=== PATIENT | female | born 1985 | race Caucasian/White ===

== ENCOUNTER 2016-07-30 16:00 | Inpatient (IN) ==
[2016-07-30] MEDS ORDERED: LIDOCAINE 1% 20 ML VIAL SQ ONE (16:01)
[2016-07-30] MEDS ORDERED: 0.9 % SODIUM CHLORIDE 1,000 ML IV ONE ×3 (16:16→20:16)
[2016-07-30] MEDS ORDERED: LORazepam 2 MG/ML VIAL IV ONE (16:30)
--- NOTE | 2016-07-30 16:39 | XRay Report ---
CLINICAL INFORMATION: Tachycardia. Chest pain. Dyspnea. TECHNIQUE: AP semierect portable chest x-ray COMPARISON: None. FINDINGS: Lungs are negative. No pulmonary parenchymal infiltrate. No parenchymal mass. Heart size and vascularity are normal. No pulmonary edema. No pulmonary congestion. No pleural fluid. IMPRESSION: Negative AP chest x-ray Interpreted and Authenticated by: Kian Gray 07/30/16
--- NOTE | 2016-07-30 16:44 | Emergency Department Note ---
General Adult HPI - General Chief complaint: Arrhythmia/Palpitations Stated complaint: Chills, joint pain, restless Time Seen by Provider: 07/30/16 16:08 Source: patient Mode of arrival: ambulatory Limitations: no limitations - History of Present Illness HPI Narrative: This patient started Seroquel one month ago and had an increase in her dose last week. She is currently taking 100 mg in the morning and 300 mg at night. Her provider saw her today and was most concerned about serotonin syndrome and so sent her to the ER. The patient does have clinical symptoms of serotonin syndrome with tachycardia fever slight restlessness and anxiousness. Mild muscle aches. Her heart rate was 140 and her temperature 101. - Related Data Home Medications Medication Instructions Recorded Confirmed QUEtiapine [SEROquel] 0 mg PO BID 07/30/16 07/30/16 diphenhydrAMINE HCL [Benadryl] 50 mg PO HSP PRN 07/30/16 07/30/16 Allergies Allergy/AdvReac Type Severity Reaction Status Date / Time No Known Drug Allergies Allergy Unverified 07/30/16 16:13 Review of Systems Constitutional: Reports: fever, chills Eyes: Denies: eye pain ENT ED: Denies: ear pain, throat pain Cardiovascular: Reports: chest pain, palpitations Respiratory: Reports: cough Gastrointestinal: Denies: abdominal pain, nausea, vomiting Genitourinary: Denies: urgency Musculoskeletal: Reports: back pain Integumentary: Denies: rash Neurological: Reports: headache Psychiatric: Reports: anxiety Past Medical History - Past Medical History Surgical history ED: Reports: cholecystectomy, hysterectomy, orthopedic, other ( carpal tunnel) Psychiatric history: Reports: bipolar Physical Exam - General Limitations: no limitations General appearance: alert, in no apparent distress - Head Head exam: atraumatic - Eye Eye exam: Present: normal appearance, PERRL, EOMI - ENT ENT exam: normal exam - Neck Neck exam: Present: normal inspection - Chest Chest inspection: Present: normal inspection - Respiratory Respiratory exam: Present: normal lung sounds bilaterally - Cardiovascular Cardiovascular exam: Present: regular rate, normal rhythm, tachycardia, normal heart sounds - Abdominal Exam Abdominal exam: Present: soft. Absent: distention, tenderness - Neurological Exam Neurological exam: Present: alert - Psychiatric Psychiatric exam: Present: normal affect, normal mood - Skin Skin exam: Present: warm, dry, intact Course Vital Signs Temperature 100.1 F H 05/16/17 16:05 Pulse Rate 144 H 07/30/16 16:05 Respiratory Rate 18 07/30/16 16:05 Blood Pressure 145/97 07/30/16 16:05 Pulse Oximetry (%) 99 07/30/16 16:05 Temperature 100.5 F H 07/31/16 05:10 Pulse Rate 114 H 07/31/16 03:39 Respiratory Rate 20 07/31/16 05:10 Blood Pressure 138/79 07/31/16 05:10 Pulse Oximetry (%) 96 07/31/16 07:13 Medical Decision Making - MDM Narrative Medical decision making narrative: As it turns Seroquel was not an SSRI and does not cause serotonin syndrome. Most likely this patient does have an infection of unknown source at this time. She does relate that she got scratched by a new rabbit last week and symptoms seemed to start after that. At this point we'll do CT of chest abdomen pelvis and a lumbar puncture and she'll be started on Rocephin and Levaquin and vancomycin and admitted to the hospital here. - Lab Data Lab results reviewed: Yes I reviewed the patient's lab results. Result diagrams: 07/31/16 03:55 07/31/16 03:55 Lab Results 07/30/16 07/30/16 07/30/16 Range/Units 16:20 16:20 16:20 WBC Cancelled RBC Cancelled Hgb Cancelled Hct Cancelled MCV Cancelled MCH Cancelled MCHC Cancelled RDW Cancelled Plt Count Cancelled MPV Cancelled Gran % Cancelled Lymph % (Auto) Cancelled [place] % (Auto) Cancelled Eos % (Auto) Cancelled Baso % (Auto) Cancelled Gran # Cancelled Lymph # Cancelled [place] # Cancelled Eos # Cancelled Baso # Cancelled Total Counted Seg Neutrophils % (38-78) % Band Neutrophils % (0-10) % Lymphocytes % (15-49) % Monocytes % (Manual) (1-12) % Differential Comment Cancelled Platelet Estimate (NORMAL) RBC Morphology (NORMAL) D-Dimer 0.91 H (0.00-0.40) ug/ml VBG Lactic Acid (0.5-2.2) mmol/L Sodium 136 (133-145) mmol/L Potassium 4.3 (3.3-5.1) mmol/L Chloride 97 (96-108) mmol/L Carbon Dioxide 23 (22-30) mmol/L Anion Gap 16.0 (8-16) BUN 10 (6-20) mg/dl Creatinine 0.8 (0.6-1.1) mg/dl GFR Calculation 98 Glucose 204 H (70-105) mg/dL Calcium 8.9 (8.6-10.4) mg/dl Total Bilirubin 0.2 (0.0-1.0) mg/dL AST 15 (0-37) U/l ALT 24 (0-40) U/l Alkaline Phosphatase 126 H (39-117) U/L Total Creatine Kinase (24-170) IU/L Troponin T (0-0.03) ng/ml Total Protein 7.3 (5.9-8.4) gm/dL Albumin 4.0 (3.2-5.2) gm/dL Globulin 3.3 (2.2-3.7) gm/dL Albumin/Globulin Ratio 1.2 (1.0-2.3) Urine Color Urine Appearance Urine pH (5.0-9.0) Ur Specific [place] (1.000-1.035) Urine Protein (NEG) mg/dL Urine Glucose (UA) (NEG) mg/dL Urine Ketones (NEG) mg/dL Urine Occult Blood (<0.03) mg/dL Urine Nitrate (NEG) Urine Bilirubin (NEG) mg/dL Urine Urobilinogen (NEG) mg/dL Ur Leukocyte Esterase (NEG) /uL Urine RBC (0-1) /hpf Urine WBC (0-4) /hpf Ur Squamous Epith Cells (0-4) /hpf Urine Bacteria (0) /hpf Urine Mucus (0) /hpf Ur Culture Indicated? CSF Source CSF Appearance CSF Color CSF RBC (0-1) /cumm CSF Diff Total Count CSF Total Nucleated Auto (0-5) /cumm CSF Neutrophils (0-6) % CSF Lymphocytes (40-80) % CSF Reactive Lymphs CSF Monocytes (15-45) % CSF Eosinophils % CSF Basophils CSF Macrophages CSF Plasma Cells CSF Diff Comment CSF Glucose (45-75) mg/dL CSF Total Protein (15.0-45) mg/dL Urine Opiates Screen (NONDETECTED) Ur Opiates Confirm Urine Methadone Screen (NONDETECTED) Ur Methadone Confirm Ur Barbiturates Screen (NONDETECTED) Ur Barbiturate Confirm Ur Phencyclidine Scrn (NONDETECTED) Urine PCP Confirm Ur Amphetamines Screen (NONDETECTED) U Amphetamines Confirm U Benzodiazepines Scrn (NONDETECTED) U Benzodiazepine Confm Urine Cocaine Screen (NONDETECTED) Urine Cocaine Confirm U Cannabinoids Confirm U Marijuana (THC) Screen (NONDETECTED) 07/30/16 07/30/16 07/30/16 Range/Units 16:20 16:20 16:20 WBC 6.7 RBC 4.95 Hgb 13.5 Hct 40.3 MCV 81.4 MCH 27.2 MCHC 33.4 RDW 14.6 H Plt Count 226 MPV 9.3 Gran % Lymph % (Auto) [place] % (Auto) Eos % (Auto) Baso % (Auto) Gran # Lymph # [place] # Eos # Baso # Total Counted 100 Seg Neutrophils % 64 (38-78) % Band Neutrophils % 15 H (0-10) % Lymphocytes % 15 (15-49) % Monocytes % (Manual) 6 (1-12) % Differential Comment Platelet Estimate Normal (NORMAL) RBC Morphology Normal (NORMAL) D-Dimer (0.00-0.40) ug/ml VBG Lactic Acid (0.5-2.2) mmol/L Sodium (133-145) mmol/L Potassium (3.3-5.1) mmol/L Chloride (96-108) mmol/L Carbon Dioxide (22-30) mmol/L Anion Gap (8-16) BUN (6-20) mg/dl Creatinine (0.6-1.1) mg/dl GFR Calculation Glucose (70-105) mg/dL Calcium (8.6-10.4) mg/dl Total Bilirubin (0.0-1.0) mg/dL AST (0-37) U/l ALT (0-40) U/l Alkaline Phosphatase (39-117) U/L Total Creatine Kinase 117 (24-170) IU/L Troponin T < 0.01 (0-0.03) ng/ml Total Protein (5.9-8.4) gm/dL Albumin (3.2-5.2) gm/dL Globulin (2.2-3.7) gm/dL Albumin/Globulin Ratio (1.0-2.3) Urine Color Urine Appearance Urine pH (5.0-9.0) Ur Specific [place] (1.000-1.035) Urine Protein (NEG) mg/dL Urine Glucose (UA) (NEG) mg/dL Urine Ketones (NEG) mg/dL Urine Occult Blood (<0.03) mg/dL Urine Nitrate (NEG) Urine Bilirubin (NEG) mg/dL Urine Urobilinogen (NEG) mg/dL Ur Leukocyte Esterase (NEG) /uL Urine RBC (0-1) /hpf Urine WBC (0-4) /hpf Ur Squamous Epith Cells (0-4) /hpf Urine Bacteria (0) /hpf Urine Mucus (0) /hpf Ur Culture Indicated? CSF Source CSF Appearance CSF Color CSF RBC (0-1) /cumm CSF Diff Total Count CSF Total Nucleated Auto (0-5) /cumm CSF Neutrophils (0-6) % CSF Lymphocytes (40-80) % CSF Reactive Lymphs CSF Monocytes (15-45) % CSF Eosinophils % CSF Basophils CSF Macrophages CSF Plasma Cells CSF Diff Comment CSF Glucose (45-75) mg/dL CSF Total Protein (15.0-45) mg/dL Urine Opiates Screen (NONDETECTED) Ur Opiates Confirm Urine Methadone Screen (NONDETECTED) Ur Methadone Confirm Ur Barbiturates Screen (NONDETECTED) Ur Barbiturate Confirm Ur Phencyclidine Scrn (NONDETECTED) Urine PCP Confirm Ur Amphetamines Screen (NONDETECTED) U Amphetamines Confirm U Benzodiazepines Scrn (NONDETECTED) U Benzodiazepine Confm Urine Cocaine Screen (NONDETECTED) Urine Cocaine Confirm U Cannabinoids Confirm U Marijuana (THC) Screen (NONDETECTED) 07/30/16 07/30/16 07/30/16 Range/Units 16:59 18:41 18:42 WBC RBC Hgb Hct MCV MCH MCHC RDW Plt Count MPV Gran % Lymph % (Auto) [place] % (Auto) Eos % (Auto) Baso % (Auto) Gran # Lymph # [place] # Eos # Baso # Total Counted Seg Neutrophils % (38-78) % Band Neutrophils % (0-10) % Lymphocytes % (15-49) % Monocytes % (Manual) (1-12) % Differential Comment Platelet Estimate (NORMAL) RBC Morphology (NORMAL) D-Dimer (0.00-0.40) ug/ml VBG Lactic Acid 2.5 H (0.5-2.2) mmol/L Sodium (133-145) mmol/L Potassium (3.3-5.1) mmol/L Chloride (96-108) mmol/L Carbon Dioxide (22-30) mmol/L Anion Gap (8-16) BUN (6-20) mg/dl Creatinine (0.6-1.1) mg/dl GFR Calculation Glucose (70-105) mg/dL Calcium (8.6-10.4) mg/dl Total Bilirubin (0.0-1.0) mg/dL AST (0-37) U/l ALT (0-40) U/l Alkaline Phosphatase (39-117) U/L Total Creatine Kinase (24-170) IU/L Troponin T (0-0.03) ng/ml Total Protein (5.9-8.4) gm/dL Albumin (3.2-5.2) gm/dL Globulin (2.2-3.7) gm/dL Albumin/Globulin Ratio (1.0-2.3) Urine Color Yellow Urine Appearance Hazy Urine pH 8.0 (5.0-9.0) Ur Specific [place] 1.020 (1.000-1.035) Urine Protein 100 A (NEG) mg/dL Urine Glucose (UA) Negative (NEG) mg/dL Urine Ketones Neg (NEG) mg/dL Urine Occult Blood Neg (<0.03) mg/dL Urine Nitrate Neg (NEG) Urine Bilirubin Neg (NEG) mg/dL Urine Urobilinogen Neg (NEG) mg/dL Ur Leukocyte Esterase Neg (NEG) /uL Urine RBC 2 H (0-1) /hpf Urine WBC < 1 (0-4) /hpf Ur Squamous Epith Cells 3 (0-4) /hpf Urine Bacteria 0 (0) /hpf Urine Mucus Few (0) /hpf Ur Culture Indicated? No CSF Source CSF Appearance CSF Color CSF RBC (0-1) /cumm CSF Diff Total Count CSF Total Nucleated Auto (0-5) /cumm CSF Neutrophils (0-6) % CSF Lymphocytes (40-80) % CSF Reactive Lymphs CSF Monocytes (15-45) % CSF Eosinophils % CSF Basophils CSF Macrophages CSF Plasma Cells CSF Diff Comment CSF Glucose (45-75) mg/dL CSF Total Protein (15.0-45) mg/dL Urine Opiates Screen None detected (NONDETECTED) Ur Opiates Confirm Not Reportable Urine Methadone Screen None detected (NONDETECTED) Ur Methadone Confirm Not Reportable Ur Barbiturates Screen None detected (NONDETECTED) Ur Barbiturate Confirm Not Reportable Ur Phencyclidine Scrn None detected (NONDETECTED) Urine PCP Confirm Not Reportable Ur Amphetamines Screen None detected (NONDETECTED) U Amphetamines Confirm Not Reportable U Benzodiazepines Scrn None detected (NONDETECTED) U Benzodiazepine Confm Not Reportable Urine Cocaine Screen None detected (NONDETECTED) Urine Cocaine Confirm Not Reportable U Cannabinoids Confirm Not Reportable U Marijuana (THC) Screen None detected (NONDETECTED) 07/30/16 07/30/16 07/30/16 Range/Units 20:10 20:10 20:10 WBC RBC Hgb Hct MCV MCH MCHC RDW Plt Count MPV Gran % Lymph % (Auto) [place] % (Auto) Eos % (Auto) Baso % (Auto) Gran # Lymph # [place] # Eos # Baso # Total Counted Seg Neutrophils % (38-78) % Band Neutrophils % (0-10) % Lymphocytes % (15-49) % Monocytes % (Manual) (1-12) % Differential Comment Platelet Estimate (NORMAL) RBC Morphology (NORMAL) D-Dimer (0.00-0.40) ug/ml VBG Lactic Acid (0.5-2.2) mmol/L Sodium (133-145) mmol/L Potassium (3.3-5.1) mmol/L Chloride (96-108) mmol/L Carbon Dioxide (22-30) mmol/L Anion Gap (8-16) BUN (6-20) mg/dl Creatinine (0.6-1.1) mg/dl GFR Calculation Glucose (70-105) mg/dL Calcium (8.6-10.4) mg/dl Total Bilirubin (0.0-1.0) mg/dL AST (0-37) U/l ALT (0-40) U/l Alkaline Phosphatase (39-117) U/L Total Creatine Kinase (24-170) IU/L Troponin T (0-0.03) ng/ml Total Protein (5.9-8.4) gm/dL Albumin (3.2-5.2) gm/dL Globulin (2.2-3.7) gm/dL Albumin/Globulin Ratio (1.0-2.3) Urine Color Urine Appearance Urine pH (5.0-9.0) Ur Specific [place] (1.000-1.035) Urine Protein (NEG) mg/dL Urine Glucose (UA) (NEG) mg/dL Urine Ketones (NEG) mg/dL Urine Occult Blood (<0.03) mg/dL Urine Nitrate (NEG) Urine Bilirubin (NEG) mg/dL Urine Urobilinogen (NEG) mg/dL Ur Leukocyte Esterase (NEG) /uL Urine RBC (0-1) /hpf Urine WBC (0-4) /hpf Ur Squamous Epith Cells (0-4) /hpf Urine Bacteria (0) /hpf Urine Mucus (0) /hpf Ur Culture Indicated? CSF Source Tube #1 CSF Appearance Clear CSF Color Colorless CSF RBC 127 H (0-1) /cumm CSF Diff Total Count 100 CSF Total Nucleated Auto 0 (0-5) /cumm CSF Neutrophils 7 H (0-6) % CSF Lymphocytes 85 H (40-80) % CSF Reactive Lymphs Not Reportable CSF Monocytes 8 L (15-45) % CSF Eosinophils % Not Reportable CSF Basophils Not Reportable CSF Macrophages Not Reportable CSF Plasma Cells Not Reportable CSF Diff Comment Not Reportable CSF Glucose 111 H TNP (45-75) mg/dL CSF Total Protein (15.0-45) mg/dL Urine Opiates Screen (NONDETECTED) Ur Opiates Confirm Urine Methadone Screen (NONDETECTED) Ur Methadone Confirm Ur Barbiturates Screen (NONDETECTED) Ur Barbiturate Confirm Ur Phencyclidine Scrn (NONDETECTED) Urine PCP Confirm Ur Amphetamines Screen (NONDETECTED) U Amphetamines Confirm U Benzodiazepines Scrn (NONDETECTED) U Benzodiazepine Confm Urine Cocaine Screen (NONDETECTED) Urine Cocaine Confirm U Cannabinoids Confirm U Marijuana (THC) Screen (NONDETECTED) 07/30/16 Range/Units 20:28 WBC RBC Hgb Hct MCV MCH MCHC RDW Plt Count MPV Gran % Lymph % (Auto) [place] % (Auto) Eos % (Auto) Baso % (Auto) Gran # Lymph # [place] # Eos # Baso # Total Counted Seg Neutrophils % (38-78) % Band Neutrophils % (0-10) % Lymphocytes % (15-49) % Monocytes % (Manual) (1-12) % Differential Comment Platelet Estimate (NORMAL) RBC Morphology (NORMAL) D-Dimer (0.00-0.40) ug/ml VBG Lactic Acid (0.5-2.2) mmol/L Sodium (133-145) mmol/L Potassium (3.3-5.1) mmol/L Chloride (96-108) mmol/L Carbon Dioxide (22-30) mmol/L Anion Gap (8-16) BUN (6-20) mg/dl Creatinine (0.6-1.1) mg/dl GFR Calculation Glucose (70-105) mg/dL Calcium (8.6-10.4) mg/dl Total Bilirubin (0.0-1.0) mg/dL AST (0-37) U/l ALT (0-40) U/l Alkaline Phosphatase (39-117) U/L Total Creatine Kinase (24-170) IU/L Troponin T (0-0.03) ng/ml Total Protein (5.9-8.4) gm/dL Albumin (3.2-5.2) gm/dL Globulin (2.2-3.7) gm/dL Albumin/Globulin Ratio (1.0-2.3) Urine Color Urine Appearance Urine pH (5.0-9.0) Ur Specific [place] (1.000-1.035) Urine Protein (NEG) mg/dL Urine Glucose (UA) (NEG) mg/dL Urine Ketones (NEG) mg/dL Urine Occult Blood (<0.03) mg/dL Urine Nitrate (NEG) Urine Bilirubin (NEG) mg/dL Urine Urobilinogen (NEG) mg/dL Ur Leukocyte Esterase (NEG) /uL Urine RBC (0-1) /hpf Urine WBC (0-4) /hpf Ur Squamous Epith Cells (0-4) /hpf Urine Bacteria (0) /hpf Urine Mucus (0) /hpf Ur Culture Indicated? CSF Source Tube #4 CSF Appearance Clear CSF Color Colorless CSF RBC 42 H (0-1) /cumm CSF Diff Total Count 100 CSF Total Nucleated Auto 0 (0-5) /cumm CSF Neutrophils 1 (0-6) % CSF Lymphocytes 92 H (40-80) % CSF Reactive Lymphs Not Reportable CSF Monocytes 7 L (15-45) % CSF Eosinophils % Not Reportable CSF Basophils Not Reportable CSF Macrophages Not Reportable CSF Plasma Cells Not Reportable CSF Diff Comment Not Reportable CSF Glucose (45-75) mg/dL CSF Total Protein 42 (15.0-45) mg/dL Urine Opiates Screen (NONDETECTED) Ur Opiates Confirm Urine Methadone Screen (NONDETECTED) Ur Methadone Confirm Ur Barbiturates Screen (NONDETECTED) Ur Barbiturate Confirm Ur Phencyclidine Scrn (NONDETECTED) Urine PCP Confirm Ur Amphetamines Screen (NONDETECTED) U Amphetamines Confirm U Benzodiazepines Scrn (NONDETECTED) U Benzodiazepine Confm Urine Cocaine Screen (NONDETECTED) Urine Cocaine Confirm U Cannabinoids Confirm U Marijuana (THC) Screen (NONDETECTED) - Radiology Data Radiology results reviewed: Yes I reviewed the patient's radiology results. ( chest x-ray was negative) Disposition Clinical Impression: Sepsis Disposition: Xfer As Inpt ([facility]) Condition: Good Time of Disposition: 19:41
[2016-07-30 16:58] LABS: Mean Cell Volume 81.4 fL (80.0-100.0); Mean Corpuscular HGB Conc 33.4 g/dL (31.0-36.0); Mean Corpuscular Hemoglobin 27.2 pg (26.0-34.0); Platelet Count 226 K/mcL (140-440); RBC 4.95 M/mcL (4.00-5.20); Red Cell Distribution Width 14.6 % (11.5-14.5)
[2016-07-30 17:21] LABS: ALT/SGPT 24 U/l (0-40); Albumin/Globulin Ratio 1.2 (1.0-2.3); Alkaline Phosphatase 126 U/L (39-117); Blood Urea Nitrogen 10 mg/dl (6-20)
[2016-07-30 17:28] LABS: Band Neutrophils % 15 % (0-10); Lymphocytes % 15 % (15-49); Monocytes % (Manual) 6 % (1-12); Platelet Estimate NORMAL (NORMAL); RBC Morphology NORMAL (NORMAL); Segmented Neutrophils % 64 % (38-78)
[2016-07-30] MEDS ORDERED: ACETAMINOPHEN 325 MG TABLET PO ONE (18:34)
[2016-07-30] MEDS ORDERED: cefTRIAXone 1 GM in DEXTROSE 5% IN WATER 50 ML IV ONE (18:53)
[2016-07-30] MEDS ORDERED: LEVOFLOXACIN 500 MG/100 ML BAG IV ONE (18:53)
[2016-07-30 19:21] LABS: Appearance,Urine HAZY; Bacteria,Urine 0 /hpf (0); Bilirubin,Urine NEG (NEG); Color,Urine YELLOW; Glucose,Urine (UA) NEGATIVE (NEG); Leukocyte Esterase,Urine NEG /uL (NEG); Mucus,Urine FEW /hpf (0); Nitrate,Urine NEG (NEG); Protein,Urine 100 mg/dL (NEG); Urine Blood NEG mg/dL (<0.03); Urine RBC 2 /hpf (0-1); Urine Squamous Epithelial Cell 3 /hpf (0-4); Urine WBC < 1 /hpf (0-4); Urobilinogen,Urine NEG (NEG)
[2016-07-30 19:36] LABS: Amphetamine Screen,Urine NONE DETECTED (NONDETECTED); Benzodiazepines Screen,Urine NONE DETECTED (NONDETECTED); Cocaine Screen,Urine NONE DETECTED (NONDETECTED); Opiate Screen,Urine NONE DETECTED (NONDETECTED)
[2016-07-30] MEDS ORDERED: VANCOMYCIN 1,000 MG in 0.9 % SODIUM CHLORIDE 250 ML IV ONE (19:36)
[2016-07-30] MEDS ORDERED: LACTATED RINGERS 1,000 ML IV ONE (20:37)
[2016-07-30] MEDS ORDERED: ACETAMINOPHEN 1,000 MG/100 ML BOTTLE IV PRN (20:46)
[2016-07-30] MEDS ORDERED: POTASSIUM CHLORIDE 20 MEQ PACKET PO PRN (20:46)
[2016-07-30] MEDS ORDERED: VANCOMYCIN PER PHARMACY IV ONE (20:46)
[2016-07-30] MEDS ORDERED: MAGNESIUM SULFATE 2 GM/50 ML BAG IV PRN (20:46)
[2016-07-30 21:32] LABS: Appearance,CSF CLEAR; Red Blood Cell,CSF 42 /cumm (0-1)
[2016-07-30 21:57] LABS: Lymphocytes,CSF 92 % (40-80); Monocytes,CSF 7 % (15-45); Neutrophils,CSF 1 % (0-6); Total Cell Ct,CSF 100
[2016-07-30] MEDS: 0.9 % SODIUM CHLORIDE 10 ML SYRINGE IV SCH (22:00)
[2016-07-30 22:07] LABS: Appearance,CSF CLEAR; Red Blood Cell,CSF 127 /cumm (0-1)
[2016-07-30] MEDS ORDERED: IOPAMIDOL 100 ML BOTTLE IJ ONE (22:10)
[2016-07-30] MEDS: 0.9 % SODIUM CHLORIDE 1,000 ML IV SCH (22:16)
[2016-07-30 22:19] LABS: C-Reactive Protein 5.8 mg/dl (0.0-0.8)
[2016-07-30] MEDS ORDERED: LEVOFLOXACIN 250 MG/50 ML BAG IV ONE (22:30)
[2016-07-30 22:44] LABS: Lymphocytes,CSF 85 % (40-80); Monocytes,CSF 8 % (15-45); Neutrophils,CSF 7 % (0-6); Total Cell Ct,CSF 100
[2016-07-30] MEDS: SENNOSIDES/DOCUSATE SODIUM 1 TAB TABLET PO SCH (22:47)
[2016-07-30] MEDS: DOCUSATE SODIUM 100 MG CAPSULE PO SCH (22:47)
[2016-07-30] MEDS: HEPARIN 5,000 UNIT/ML VIAL SQ SCH (22:47)
[2016-07-30] MEDS ORDERED: VANCOMYCIN 500 MG VIAL ONE (22:57)
[2016-07-30] MEDS: VANCOMYCIN 1,000 MG in 0.9 % SODIUM CHLORIDE 250 ML IV ONE ×2 (23:03→23:11)
[2016-07-30] MEDS ORDERED: PIPERACILLIN SODIUM/TAZOBACTAM 3.375 GM VIAL IV ONE (23:17)
[2016-07-31] MEDS: PIPERACILLIN SODIUM/TAZOBACTAM 3.375 GM in DEXTROSE 5% IN WATER 50 ML IV SCH ×5 (00:04→23:33)
[2016-07-31] MEDS: 0.9 % SODIUM CHLORIDE 1,000 ML IV SCH ×3 (00:50→11:00)
[2016-07-31 01:40] LABS: Hemoglobin A1C 7.8 % HGB (4.0-6.0)
[2016-07-31] MEDS ORDERED: PIPERACILLIN SODIUM/TAZOBACTAM 3.375 GM VIAL IV ONE (04:59)
[2016-07-31] MEDS: 0.9 % SODIUM CHLORIDE 10 ML SYRINGE IV SCH ×4 (05:12→23:33)
[2016-07-31 05:23] LABS: Mean Cell Volume 81.9 fL (80.0-100.0); Mean Corpuscular HGB Conc 34.2 g/dL (31.0-36.0); Platelet Count 217 K/mcL (140-440); RBC 4.46 M/mcL (4.00-5.20); Red Cell Distribution Width 14.7 % (11.5-14.5)
[2016-07-31] MEDS: ONDANSETRON 4 MG/2 ML VIAL IV PRN ×2 (05:41→16:31)
--- NOTE | 2016-07-31 05:57 | XRay Report ---
CLINICAL INFORMATION: Fever. Possible meningitis. TECHNIQUE: Informed consent was obtained. Fluoroscopic guidance utilized. Routine Betadine skin cleansing. 1% lidocaine injected. An 18-gauge spinal needle was utilized. Lumbar puncture was performed at L2-L3. 5 mL clear CSF removed. IMPRESSION: Fluoroscopic guided lumbar puncture Interpreted and Authenticated by: Kian Gray 07/31/16
--- NOTE | 2016-07-31 06:05 | Cat Scan Report ---
CLINICAL INFORMATION: Fever. Sepsis. TECHNIQUE: Axial images through the chest, abdomen, pelvis. 90 mL intravenous contrast which are injected. Oral contrast material was given. Sagittally and coronally reformatted images. MIP reformatted images COMPARISON: Chest x-ray dated 07/30/2016. FINDINGS: Right lower lobe consolidation consistent with pneumonia. This is not well visualized on chest x-ray. There is a 6 mm solitary noncalcified left lower lobe nodule, image 74/[id number]. In a low risk patient a 6-12 month and 18-24 months follow-up appropriate. Lungs are otherwise negative. [place] and mediastinum are negative. No pathologic adenopathy. No axillary adenopathy. Supraclavicular adenopathy. No paraspinal soft tissue mass. No pleural fluid. No pericardial fluid. Low density liver consistent with hepatic steatosis. Normal smooth liver contour. No evidence for cirrhosis. No focal abnormality. Gallbladder is not identified. No dilated bile ducts. No splenomegaly. Normal enhancement of splenic and portal veins. Adrenal glands are negative. Negative kidneys. No solid or cystic mass. No hydronephrosis. No retroperitoneal or mesenteric adenopathy. Negative colon. No diverticulitis. No mechanical small bowel obstruction. Thoracic and lumbar spine are negative. Sacrum and pelvis are negative. No intra-abdominal abscess. No free fluid. No pneumoperitoneum. No biliary or portal venous gas. Vascular structures are normal This examination was initially interpreted by [facility]. No discrepancy. IMPRESSION: 1. Right lower lobe pneumonia. Small noncalcified left lower lobe nodule 2. Hepatic steatosis. No focal abnormality Interpreted and Authenticated by: Kian Gray 07/31/16
[2016-07-31 06:06] LABS: ALT/SGPT 20 U/l (0-40); Albumin 3.5 gm/dL (3.2-5.2); Albumin/Globulin Ratio 1.2 (1.0-2.3); Alkaline Phosphatase 113 U/L (39-117); Bilirubin,Direct < 0.2 mg/dL (0.0-0.3); Blood Urea Nitrogen 9 mg/dl (6-20); Gamma Glutamyl Transpeptidase 27 U/L (5-36); Magnesium 1.5 mg/dL (1.6-2.5); Uric Acid 6.3 mg/dL (2.5-8.0)
[2016-07-31 07:38] LABS: Anisocytosis FEW (NONE SEEN); Band Neutrophils % 9 % (0-10); Lymphocytes % 19 % (15-49); Monocytes % (Manual) 7 % (1-12); Platelet Estimate NORMAL (NORMAL); RBC Morphology ABNORM (NORMAL); Segmented Neutrophils % 65 % (38-78)
[2016-07-31] MEDS: ACETAMINOPHEN 325 MG TABLET PO PRN ×3 (07:39→23:39)
[2016-07-31] MEDS: PANTOPRAZOLE 40 MG TABLET PO SCH (07:39)
[2016-07-31] MEDS: HEPARIN 5,000 UNIT/ML VIAL SQ SCH ×2 (09:32→20:10)
[2016-07-31] MEDS: NEUTRA PHOS 1 PACKET PO SCH ×2 (09:32→20:12)
--- NOTE | 2016-07-31 09:39 | History and Physical Report ---
DATE OF ADMISSION: 07/30/2016 REASON FOR ADMISSION: Fever, shaking chills, weakness, cough. HISTORY OF CHIEF COMPLAINT: This is a 31-year-old who comes to [facility] Emergency Room with her after she has been feeling weak over the last few days. The patient has associated fever along with chills. She has had URI symptoms with cough for the last few days, but she denies chest pain, diarrhea, dysuria, headache, or photophobia. She denies sick contacts. She has not had her flu vaccine. She denies recent travel outside. She saw her primary care physician and has been managed for her bipolar disorder on Seroquel. Concern was raised after her Seroquel dose was increased about NMS / extrapyramidal symptoms . However, initial workup in the ER was consistent with bandemia, fever and likely sepsis. CT abdomen and pelvis and chest revealed right lower lobe pneumonia. The patient was started on broad antibiotic coverage and subsequently Hospitalist Service was consulted. At the time of examination, the patient is alert and oriented. She denies any distress. She was tachycardic around 140 with a fever of 102.8. She denies any mental status change. She also underwent lumbar puncture. REVIEW OF SYSTEMS: Other than that a ten-point review of system was performed and negative except the ones discussed above. PAST MEDICAL HISTORY: Bipolar disorder, currently on quetiapine. CURRENT MEDICATIONS: 1. Quetiapine dose unclear, currently being verified. 2. Diphenhydramine 50 mg at bedtime p.r.n. ALLERGIES: None significant. SOCIAL HISTORY: No history of smoking or alcoholism. She is , has a kid. She is a [employer]. She is a homemaker. FAMILY HISTORY: Significant for hypertension in parents, stroke in grandmother at age 27. PHYSICAL EXAMINATION: GENERAL: The patient is fairly obese with BMI of 56. Height 5 feet 3 inches. VITAL SIGNS: Blood pressure 139/96, respiratory rate 20, down from 102.8 to 98.2, pulse variable between 130 to 140, sinus tachycardia, and sats 98% on room air. HEENT: Pupils symmetric. Oral cavity is dry. No ear or nose discharge. Head is normocephalic and atraumatic. NECK: No lymphadenopathy. HEART: S1, S2, regular rate and rhythm. No murmur. CHEST: Clear to auscultation. Tachycardia. ABDOMEN: Soft, pendulous, extensive pannus and adiposity. LOWER EXTREMITIES: No cyanosis or clubbing. No joint swelling. SKIN: No suspicious lesion. No joint swelling or erythema. PSYCH: Alert and cooperative. Mild anxiety. NEURO: Nonfocal, moving all four extremities. LABS AND IMAGING: White count 6.7, hemoglobin 13.5, neutrophils 64%, bands 15%. ESR 60. D-dimer 0.91. Lactic acid 2.5. Sodium 136, potassium 4.3, creatinine 0.8, and BUN 10. A1c 7.8. Glucose 204. ALT 24, AST 15. Troponins negative. Procalcitonin 0.1. UA unremarkable. Lumbar puncture zero nucleated cells. CSF glucose 111. Total protein 42. Tox profile negative. CT abdomen, pelvis and chest: Right lower lobe pneumonia, hepatic steatosis. EKG: Sinus tachycardia. ASSESSMENT AND PLAN: A 31-year-old admitted with right lower lobe pneumonia, severe sepsis. 1. Sepsis with tachycardia, fever, bandemia. Continue aggressive management on crystalloids, vasopressors if indicated, broad antibiotics. Cultures have been obtained. 2. Right lower lobe pneumonia, likely community-acquired. Continue antibiotic coverage and deescalate based on culture sensitivities. 3. History of bipolar disorder. Continue quetiapine. PLAN FOR TODAY: 1. Admit as inpatient in telemetry in light of unstable hemodynamics with tachycardia at 140 and severe sepsis. 2. Broad antibiotic coverage. 3. Await CSF cultures. AA:[email or web address] Job ID: [id number] Doc ID: [id number] Eduardo FARRIS
--- NOTE | 2016-07-31 09:54 | Internal Med Progress Note ---
Medical - PN: Subj Patient information: Note initiated : 07/31/16 at 9:50 am Service Date, if different from initiated Date: [] Patient: Amina Shelton 31 y/o F admitted on 07/30/16 for Chills, Joint Pain, Restless/Sepsis. Chief Complaint: [] Interval history: 07/30- 31-year-old with sepsis, fever and tachycardia and right sided pneumonia. admitted to telemetry on broad antibiotic coverage. Heart rate 140. Aggressive crystalloid/antibiotics. Blood cultures pending. 07/31- improving fever from 102.8-100.8. Tachycardia improved to 115. patient feels slightly better. Cough is productive sputum. No abdominal pain chest pain. No significant hypoxia. Improving hemodynamics. Continue broad antibiotic coverage for community acquired pathogens - Constitutional Vitals: Vital Signs Temp Pulse Resp BP Pulse Ox 100.8 F H 114 H 20 124/75 99 07/31/16 07:52 07/31/16 03:39 07/31/16 07:52 07/31/16 07:52 07/31/16 07:52 Period Temp Pulse Resp BP Sys/Marie Pulse Ox Last 24 Hr 98.2 F-100.8 F 114-120 20-20 124-145/75-96 93-99 Intake and Output 07/30/16 07/31/16 07/31/16 21:59 05:59 13:59 Intake Total 1700 / 1700 Output Total 250 / 250 2900 / 2900 51 / 51 Balance -250 / 2057 -1200 / -1200 - / -51 Weight 318 lb 3.2 oz Intake & Output: Intake & Output 07/30/16 07/31/16 07/31/16 21:59 05:59 13:59 Intake Total 1700 / 1700 Output Total 250 / 250 2900 / 2900 51 / 51 Balance -250 / 2057 -1200 / -1200 - / -51 Weight 318 lb 3.2 oz Intake: IV 1050 / 1050 Sodium Chloride 0.9% 1, 1000 / 1000 000 ml @ Wide Open IV [facility] Rx#:[id number] Oral 350 / 350 IV - Manual Only 300 / 300 Output: Void Amount 250 / 250 2900 / 2900 1 / 1 Emesis 50 / 50 Other: # Voids 1 # Bowel Movements 1 1 General appearance: cooperative, no acute distress Exam: morbidly obese. Nonlabored breathing Nondistended abdomen Mild anxiety Medical - PN: Obj Da - Labs CBC & Chem 7: 07/31/16 03:55 07/31/16 03:55 Labs: Abnormal Lab Results 07/31/16 07/31/16 07/30/16 03:55 03:55 23:10 RDW 14.7 H RBC Morphology Abnorm A Anisocytosis Few A ESR Glucose 179 H Hemoglobin A1c 7.8 H Calcium 8.2 L Phosphorus 1.6 L Magnesium 1.5 L C-Reactive Protein 07/30/16 07/30/16 21:24 21:24 RDW RBC Morphology Anisocytosis ESR 60 H Glucose Hemoglobin A1c Calcium Phosphorus Magnesium C-Reactive Protein 5.8 H Meds: Medications Acetaminophen (Tylenol) 650 mg PO Q4-6HP PRN PRN Reason: PAIN/FEVER > 101 Last Admin: 07/31/16 07:39 Dose: 650 mg Docusate Sodium (Colace) 100 mg PO BID [facility] Last Admin: 07/30/16 22:47 Dose: Not Given Heparin Sodium (Porcine) (Heparin) 5,000 unit SQ Q12 [facility] Last Admin: 07/31/16 09:32 Dose: 5,000 unit Levofloxacin (Levaquin) 750 mg in 150 mls @ 100 mls/hr IV Q24H [facility] Magnesium Sulfate (Magnesium Sulfate) 2 gm in 50 mls @ 50 mls/hr IV UD PRN PRN Reason: MG = or < 1.7 Sodium Chloride (Sodium Chloride 0.9%) 1,000 mls @ 100 mls/hr IV .Q10H [facility] Last Admin: 07/31/16 00:50 Dose: 100 mls/hr Sodium Chloride (Sodium Chloride 0.9%) 1,000 mls @ 0 mls/hr IV BOLUS [facility] PRN Reason: Wide Open Last Infusion: 07/31/16 00:50 Dose: Infused Acetaminophen (Ofirmev) 1,000 mg in 100 mls @ 200 mls/hr IV Q6HP PRN PRN Reason: PAIN/FEVER > 101 Piperacillin Sod/Tazobactam (Sod 3.375 gm/ Dextrose) 50 mls @ 100 mls/hr IV Q6H [facility] Last Admin: 07/31/16 05:12 Dose: Not Given Vancomycin HCl 1,500 mg/ (Sodium Chloride) 500 mls @ 333.3 mls/hr IV Q12H [facility] Ondansetron HCl (Zofran) 4 mg IV Q4-6HP PRN PRN Reason: Nausea And Vomiting Last Admin: 07/31/16 05:41 Dose: 4 mg Pantoprazole Sodium (Protonix) 40 mg PO QAMAC [facility] Last Admin: 07/31/16 07:39 Dose: 40 mg Potassium Chloride (Klor-Con) 40 meq PO DAILYP PRN PRN Reason: K+ < 3.5 Potassium/Phosphorus/Sodium (Neutra Phos) 2 packet PO BID [facility] Last Admin: 07/31/16 09:32 Dose: 2 packet Senna/Docusate Sodium (Senna Plus Tablet) 1 tab PO HS [facility] Last Admin: 07/30/16 22:47 Dose: Not Given Sodium Chloride (Saline Flush) 10 ml IV Q8 [facility] Last Admin: 07/31/16 05:12 Dose: 10 ml Medical - PN: A/P - Time Spent With Patient Total time spent is greater than 50% in coordination of care (as documented) at patient's floor/unit and/or counseling patient: 25 - 35 minutes (1) Sepsis Status: Acute Assessment and plan: * Sepsis-secondary pneumonia. Clinically improving on broad antibiotic coverage. Await cultures * Right lower lobe pneumonia- continue empiric antibiotic coverage. Await Gram stain and cultures * History of bipolar disorder-resume home dose Seroquel Plan * Broad antibiotic coverage * close hemodynamic monitoring * Resume home meds Current Visit: Yes Medical - PN: Qual - VTE Deep Vein Thrombosis/Pulmonary Embolism Present on Admission: Yes
[2016-07-31] MEDS: LEVOFLOXACIN 750 MG/150 ML BAG IV SCH (11:00)
[2016-07-31] MEDS: DOCUSATE SODIUM 100 MG CAPSULE PO SCH ×2 (12:51→20:12)
[2016-07-31] MEDS: VANCOMYCIN 1,500 MG in 0.9 % SODIUM CHLORIDE 500 ML IV SCH (13:00)
[2016-07-31 15:37] LABS: Nucleated Cells,CSF 6 /cumm (0-5)
[2016-07-31 15:38] LABS: Nucleated Cells,CSF 12 /cumm (0-5)
[2016-07-31] MEDS: QUEtiapine 100 MG TABLET PO SCH (20:11)
[2016-07-31] MEDS: SENNOSIDES/DOCUSATE SODIUM 1 TAB TABLET PO SCH (20:12)
[2016-08-01] MEDS: 0.9 % SODIUM CHLORIDE 1,000 ML IV SCH ×5 (04:00→20:19)
[2016-08-01] MEDS: VANCOMYCIN 1,500 MG in 0.9 % SODIUM CHLORIDE 500 ML IV SCH ×3 (04:00→19:29)
[2016-08-01 05:57] LABS: Mean Cell Volume 81.7 fL (80.0-100.0); Mean Corpuscular HGB Conc 33.6 g/dL (31.0-36.0); Mean Corpuscular Hemoglobin 27.4 pg (26.0-34.0); Platelet Count 195 K/mcL (140-440); Red Cell Distribution Width 14.6 % (11.5-14.5)
[2016-08-01] MEDS: PIPERACILLIN SODIUM/TAZOBACTAM 3.375 GM in DEXTROSE 5% IN WATER 50 ML IV SCH ×4 (06:15→23:59)
[2016-08-01] MEDS: 0.9 % SODIUM CHLORIDE 10 ML SYRINGE IV SCH ×3 (06:16→20:19)
[2016-08-01 06:19] LABS: ALT/SGPT 18 U/l (0-40); Albumin 3.1 gm/dL (3.2-5.2); Alkaline Phosphatase 97 U/L (39-117); Bilirubin,Direct < 0.2 mg/dL (0.0-0.3); Blood Urea Nitrogen 7 mg/dl (6-20); Gamma Glutamyl Transpeptidase 27 U/L (5-36); Magnesium 2.1 mg/dL (1.6-2.5); Uric Acid 3.9 mg/dL (2.5-8.0)
[2016-08-01] MEDS: PANTOPRAZOLE 40 MG TABLET PO SCH (07:00)
--- NOTE | 2016-08-01 07:30 | XRay Report ---
CLINICAL INFORMATION: Pneumonia TECHNIQUE: AP portable semierect chest x-ray COMPARISON: Previous chest x-ray dated 07/30/[address] scan dated 07/30/2016 FINDINGS: Increasing right basilar infiltrate consistent with pneumonia. Left lung is clear. Heart size and vascularity are normal. IMPRESSION: Increasing right basilar infiltrate. Interpreted and Authenticated by: Kian Gray 08/01/16
[2016-08-01 08:11] LABS: Anisocytosis FEW (NONE SEEN); Band Neutrophils % 16 % (0-10); Lymphocytes % 19 % (15-49); Monocytes % (Manual) 4 % (1-12); Platelet Estimate NORMAL (NORMAL); RBC Morphology ABNORM (NORMAL); Segmented Neutrophils % 61 % (38-78)
[2016-08-01] MEDS: QUEtiapine 100 MG TABLET PO SCH ×2 (08:49→20:14)
[2016-08-01] MEDS: NEUTRA PHOS 1 PACKET PO SCH ×2 (08:50→20:14)
[2016-08-01] MEDS: HEPARIN 5,000 UNIT/ML VIAL SQ SCH ×2 (08:52→20:14)
[2016-08-01] MEDS: ONDANSETRON 4 MG/2 ML VIAL IV PRN (08:53)
[2016-08-01] MEDS: LEVOFLOXACIN 750 MG/150 ML BAG IV SCH (09:00)
[2016-08-01] MEDS: DOCUSATE SODIUM 100 MG CAPSULE PO SCH ×2 (12:28→20:19)
--- NOTE | 2016-08-01 14:05 | Internal Med Progress Note ---
Medical - PN: Subj Patient information: Note initiated : 08/01/16 at 1:59 pm Service Date, if different from initiated Date: [] Patient: Amina Shelton 31 y/o F admitted on 07/30/16 for Chills, Joint Pain, Restless/Sepsis. Chief Complaint: [] Interval history: 07/30- 31-year-old with sepsis, fever and tachycardia and right sided pneumonia. admitted to telemetry on broad antibiotic coverage. Heart rate 140. Aggressive crystalloid/antibiotics. Blood cultures pending. 07/31- improving fever from 102.8-100.8. Tachycardia improved to 115. patient feels slightly better. Cough is productive sputum. No abdominal pain chest pain. No significant hypoxia. Improving hemodynamics. Continue broad antibiotic coverage for community acquired pathogens. A1c 7.8 suggestive of iabetes 08/01- patient doing well. Overnight MAXIMUM TEMPERATURE 101..increasing bibasilar infiltrates on chest imaging. negative CSF cultures/blood cultures so far. On broad antibiotic coverage. 15% bands. CSF initial results showed 0 total cells, amended results shows 12 white cells with 85% lymphocytes. however normal protein and glucose. CSF HSV 1 and 2 DNA pending. pro-calcitonin 0.1 suggestive against an active bacterial process. DC antibiotics in 24 hours. - Constitutional Vitals: Vital Signs Temp Pulse Resp BP Pulse Ox 98.5 F 110 H 18 139/74 95 08/01/16 11:52 08/01/16 11:52 08/01/16 11:52 08/01/16 11:52 08/01/16 11:52 Period Temp Pulse Resp BP Sys/Marie Pulse Ox Last 24 Hr 98.4 F-102.8 F 110-111 18-20 111-139/58-84 93-100 Intake and Output 07/31/16 08/01/16 08/01/16 21:59 05:59 13:59 Intake Total 1940 / 1940 100 / 100 810 / 810 Output Total 400 / 400 2200 / 2200 Balance 1540 / 1540 100 / 100 -1390 / -1390 Weight 322 lb Intake & Output: Intake & Output 07/31/16 08/01/16 08/01/16 21:59 05:59 13:59 Intake Total 1940 / 1940 100 / 100 810 / 810 Output Total 400 / 400 2200 / 2200 Balance 1540 / 1540 100 / 100 -1390 / -1390 Weight 322 lb Intake: IV 1700 / 1700 100 / 100 250 / 250 Sodium Chloride 0.9% 1, 1000 / 1000 000 ml @ 100 mls/hr IV . Q10H [facility] Rx#:[id number] Zosyn 3.375 gm In 100 / 100 100 / 100 Dextrose 5% in Water 50 ml @ 100 mls/hr IV Q6H [facility] Rx#:[id number] Vancomycin 1,500 mg In 500 / 500 Sodium Chloride 0.9% 500 ml @ 333.3 mls/hr IV Q12H [facility] Rx#:[id number] Oral 240 / 240 560 / 560 Output: Void Amount 400 / 400 2200 / 2200 Other: Meal Dinner Lunch Percent of Meal Consumed 100% 75% Feeding Ability Independent Independent # Bowel Movements 1 General appearance: cooperative, morbidly obese, no acute distress Exam: nonlabored breathing Nondistended abdomen Mild anxiety obese Medical - PN: Obj Da - Labs CBC & Chem 7: 08/01/16 03:40 08/01/16 03:40 Labs: Abnormal Lab Results 08/01/16 08/01/16 07/31/16 03:40 03:40 03:55 Hgb 11.5 L Hct 34.3 L RDW 14.6 H Band Neutrophils % 16 H RBC Morphology Abnorm A Anisocytosis Few A ESR Carbon Dioxide 20 L Glucose 202 H 179 H Hemoglobin A1c Calcium 7.7 L 8.2 L Phosphorus 2.1 L 1.6 L Magnesium 1.5 L C-Reactive Protein Albumin 3.1 L 07/31/16 07/30/16 07/30/16 03:55 23:10 21:24 Hgb Hct RDW 14.7 H Band Neutrophils % RBC Morphology Abnorm A Anisocytosis Few A ESR Carbon Dioxide Glucose Hemoglobin A1c 7.8 H Calcium Phosphorus Magnesium C-Reactive Protein 5.8 H Albumin 07/30/16 21:24 Hgb Hct RDW Band Neutrophils % RBC Morphology Anisocytosis ESR 60 H Carbon Dioxide Glucose Hemoglobin A1c Calcium Phosphorus Magnesium C-Reactive Protein Albumin Meds: Medications Acetaminophen (Tylenol) 650 mg PO Q4-6HP PRN PRN Reason: PAIN/FEVER > 101 Last Admin: 07/31/16 23:39 Dose: 650 mg Docusate Sodium (Colace) 100 mg PO BID [facility] Last Admin: 08/01/16 12:28 Dose: Not Given Heparin Sodium (Porcine) (Heparin) 5,000 unit SQ Q12 [facility] Last Admin: 08/01/16 08:52 Dose: 5,000 unit Levofloxacin (Levaquin) 750 mg in 150 mls @ 100 mls/hr IV Q24H [facility] Last Infusion: 08/01/16 13:51 Dose: Infused Magnesium Sulfate (Magnesium Sulfate) 2 gm in 50 mls @ 50 mls/hr IV UD PRN PRN Reason: MG = or < 1.7 Last Infusion: 07/31/16 18:04 Dose: Infused Sodium Chloride (Sodium Chloride 0.9%) 1,000 mls @ 100 mls/hr IV .Q10H [facility] Last Admin: 08/01/16 05:29 Dose: Not Given Sodium Chloride (Sodium Chloride 0.9%) 1,000 mls @ 0 mls/hr IV BOLUS [facility] PRN Reason: Wide Open Last Admin: 08/01/16 05:29 Dose: Not Given Acetaminophen (Ofirmev) 1,000 mg in 100 mls @ 200 mls/hr IV Q6HP PRN PRN Reason: PAIN/FEVER > 101 Piperacillin Sod/Tazobactam (Sod 3.375 gm/ Dextrose) 50 mls @ 100 mls/hr IV Q6H [facility] Last Infusion: 08/01/16 13:52 Dose: Infused Vancomycin HCl 1,500 mg/ (Sodium Chloride) 500 mls @ 333.3 mls/hr IV Q12H [facility] Last Admin: 08/01/16 04:00 Dose: 333 mls/hr Ondansetron HCl (Zofran) 4 mg IV Q4-6HP PRN PRN Reason: Nausea And Vomiting Last Admin: 08/01/16 08:53 Dose: 4 mg Pantoprazole Sodium (Protonix) 40 mg PO QAMAC [facility] Last Admin: 08/01/16 07:00 Dose: 40 mg Potassium Chloride (Klor-Con) 40 meq PO DAILYP PRN PRN Reason: K+ < 3.5 Potassium/Phosphorus/Sodium (Neutra Phos) 2 packet PO BID [facility] Last Admin: 08/01/16 08:50 Dose: 2 packet Quetiapine Fumarate (Seroquel) 150 mg PO BID [facility] Last Admin: 08/01/16 08:49 Dose: 150 mg Senna/Docusate Sodium (Senna Plus Tablet) 1 tab PO HS [facility] Last Admin: 07/31/16 20:12 Dose: 1 tab Sodium Chloride (Saline Flush) 10 ml IV Q8 [facility] Last Admin: 08/01/16 06:16 Dose: 10 ml Medical - PN: A/P - Time Spent With Patient Total time spent is greater than 50% in coordination of care (as documented) at patient's floor/unit and/or counseling patient: 25 - 35 minutes (1) Sepsis Status: Acute Assessment and plan: * Sepsis-secondary to bibasal pneumonia. Continue antibiotic coverage. Improved tachycardia from 140-110. Persistent bandemia * bilateral lower lobe pneumonia- on empiric antibiotic coverage. cultures negative so far * new onset diabetes with hyperglycemia with A1c 7.8- start metformin * History of bipolar disorder-Seroquel on hold Plan * Start metformin * continue antibiotic coverage and de-escalate * Await strep pneumo/mycoplasma antibody * Rapid flu * close hemodynamic monitoring * Resume home meds Current Visit: Yes Medical - PN: Qual - VTE Deep Vein Thrombosis/Pulmonary Embolism Present on Admission: Yes
[2016-08-01] MEDS ORDERED: sitaGLIPtin 100 MG TABLET PO ONE (14:06)
[2016-08-01 17:04] LABS: Strep Pneumoniae Antigen - UR NEGATIVE (NEGATIVE)
[2016-08-01] MEDS: metFORMIN 500 MG TAB.XL.24H PO SCH (17:28)
[2016-08-01] MEDS: ACETAMINOPHEN 325 MG TABLET PO PRN (20:14)
[2016-08-01] MEDS: SENNOSIDES/DOCUSATE SODIUM 1 TAB TABLET PO SCH (20:18)
[2016-08-02] MEDS: 0.9 % SODIUM CHLORIDE 1,000 ML IV SCH ×4 (02:35→20:33)
[2016-08-02] MEDS ORDERED: VANCOMYCIN 1,500 MG in 0.9 % SODIUM CHLORIDE 500 ML IV SCH (03:00)
[2016-08-02 05:32] LABS: Mean Cell Volume 82.4 fL (80.0-100.0); Mean Corpuscular HGB Conc 33.3 g/dL (31.0-36.0); Mean Corpuscular Hemoglobin 27.4 pg (26.0-34.0); Platelet Count 186 K/mcL (140-440); RBC 4.42 M/mcL (4.00-5.20); Red Cell Distribution Width 14.7 % (11.5-14.5)
[2016-08-02] MEDS: 0.9 % SODIUM CHLORIDE 10 ML SYRINGE IV SCH ×3 (05:52→20:33)
[2016-08-02] MEDS: PIPERACILLIN SODIUM/TAZOBACTAM 3.375 GM in DEXTROSE 5% IN WATER 50 ML IV SCH (05:52)
[2016-08-02 05:58] LABS: Band Neutrophils % 29 % (0-10); Basophils % (Manual) 1 % (0-2); Eosinophils % (Manual) 1 % (0-7); Lymphocytes % 27 % (15-49); Monocytes % (Manual) 6 % (1-12); Platelet Estimate NORMAL (NORMAL); RBC Morphology NORMAL (NORMAL); Segmented Neutrophils % 35 % (38-78)
[2016-08-02 06:07] LABS: ALT/SGPT 40 U/l (0-40); Albumin 3.3 gm/dL (3.2-5.2); Alkaline Phosphatase 100 U/L (39-117); Bilirubin,Direct < 0.2 mg/dL (0.0-0.3); Blood Urea Nitrogen 5 mg/dl (6-20); Gamma Glutamyl Transpeptidase 28 U/L (5-36); Magnesium 2.1 mg/dL (1.6-2.5); Uric Acid 3.2 mg/dL (2.5-8.0)
[2016-08-02] MEDS: PANTOPRAZOLE 40 MG TABLET PO SCH (07:27)
[2016-08-02] MEDS: metFORMIN 500 MG TAB.XL.24H PO SCH ×2 (07:50→17:17)
[2016-08-02] MEDS ORDERED: LEVOFLOXACIN 750 MG/150 ML BAG IV SCH (09:00)
[2016-08-02] MEDS: NEUTRA PHOS 1 PACKET PO SCH ×2 (09:27→20:32)
[2016-08-02] MEDS: HEPARIN 5,000 UNIT/ML VIAL SQ SCH ×2 (09:27→20:32)
[2016-08-02] MEDS: sitaGLIPtin 100 MG TABLET PO SCH (09:28)
[2016-08-02] MEDS: QUEtiapine 100 MG TABLET PO SCH (09:28)
[2016-08-02] MEDS: DOCUSATE SODIUM 100 MG CAPSULE PO SCH ×2 (09:35→20:32)
[2016-08-02] MEDS: LEVOFLOXACIN 750 MG/150 ML BAG IV SCH (10:01)
--- NOTE | 2016-08-02 10:54 | Internal Med Progress Note ---
Medical - PN: Subj Patient information: Note initiated : 08/02/16 at 10:51 am Service Date, if different from initiated Date: [] Patient: Amina Shelton 31 y/o F admitted on 07/30/16 for Chills, Joint Pain, Restless/Sepsis. Chief Complaint: [] Interval history: 07/30- 31-year-old with sepsis, fever and tachycardia and right sided pneumonia. admitted to telemetry on broad antibiotic coverage. Heart rate 140. Aggressive crystalloid/antibiotics. Blood cultures pending. 07/31- improving fever from 102.8-100.8. Tachycardia improved to 115. patient feels slightly better. Cough is productive sputum. No abdominal pain chest pain. No significant hypoxia. Improving hemodynamics. Continue broad antibiotic coverage for community acquired pathogens. A1c 7.8 suggestive of iabetes 08/01- patient doing well. Overnight MAXIMUM TEMPERATURE 101..increasing bibasilar infiltrates on chest imaging. negative CSF cultures/blood cultures so far. On broad antibiotic coverage. 15% bands. CSF initial results showed 0 total cells, amended results shows 12 white cells with 85% lymphocytes. however normal protein and glucose. CSF HSV 1 and 2 DNA pending. pro-calcitonin 0.1 suggestive against an active bacterial process. DC antibiotics in 24 hours. 08/02- patient with FUO and daily evening rise of temperature as high as 103. Very confusing picture given Procan stone and 0.1, CSF cells 12 with lymphocyte predominance, peripheral blood extensive bandemia and neutrophilia,negative blood cultures, negative CT abdomen and chest. In regards to FUO further workup including hSV/EBV/CMV/HIV/hepatitis C/acute hepatitis panel ordered. Await ankle/RF/PUSHPA/ASO/peripheral smear. inflammatory markers moderate elevation ESR 60 CRP 5.6 . DC all antibiotics is unlikely a bacterial process. Patient denies history of travel/STDs/hiking or exposure to bat dropping. the patient continues to spike fever despite above workup she would need infectious disease specialist/tertiary Center transfer for further evaluation. - Constitutional Vitals: Vital Signs Temp Pulse Resp BP Pulse Ox 98.7 F 101 H 20 145/83 96 08/02/16 06:17 08/02/16 04:00 08/02/16 06:17 08/02/16 06:17 08/02/16 06:17 Period Temp Pulse Resp BP Sys/Marie Pulse Ox Last 24 Hr 96.3 F-100.6 F 88-110 16-20 126-145/73-89 95-97 Intake and Output 08/01/16 08/02/16 08/02/16 21:59 05:59 13:59 Intake Total 2049 1350 / 1350 1210 / 1210 Output Total 1949 1800 / 1800 825 / 825 Balance 100 / 100 -450 / -450 385 / 385 Weight 322 lb 6.4 oz Intake & Output: Intake & Output 08/01/16 08/02/16 08/02/16 21:59 05:59 13:59 Intake Total 2049 1350 / 1350 1210 / 1210 Output Total 1949 1800 / 1800 825 / 825 Balance 100 / 100 -450 / -450 385 / 385 Weight 322 lb 6.4 oz Intake: IV 1050 / 1050 1050 / 1050 50 / 50 Sodium Chloride 0.9% 1, 1000 / 1000 1000 / 1000 000 ml @ 100 mls/hr IV . Q10H [facility] Rx#:[id number] Zosyn 3.375 gm In 50 / 50 50 / 50 50 / 50 Dextrose 5% in Water 50 ml @ 100 mls/hr IV Q6H [facility] Rx#:[id number] Oral 1000 / 1000 300 / 300 1160 / 1160 Output: Void Amount 1949 1800 / 1800 825 / 825 Other: Meal Dinner Percent of Meal Consumed 75% 100% # Bowel Movements 1 General appearance: cooperative, no acute distress Exam: alert oriented ambulating No anxiety no lymphedema no pallor Medical - PN: Obj Da - Labs CBC & Chem 7: 08/01/16 03:40 08/01/16 03:40 Labs: Abnormal Lab Results 08/02/16 08/02/16 08/01/16 03:40 03:40 03:40 WBC 3.9 L Hgb Hct RDW 14.7 H Seg Neutrophils % 35 L Band Neutrophils % 29 H RBC Morphology Anisocytosis ESR Carbon Dioxide 20 L BUN 5 L Glucose 158 H 202 H Hemoglobin A1c Calcium 7.9 L 7.7 L Phosphorus 1.9 L 2.1 L Magnesium AST 45 H Lactate Dehydrogenase 309 H C-Reactive Protein Albumin 3.1 L Triglycerides 157 H 08/01/16 07/31/16 07/31/16 03:40 03:55 03:55 WBC Hgb 11.5 L Hct 34.3 L RDW 14.6 H 14.7 H Seg Neutrophils % Band Neutrophils % 16 H RBC Morphology Abnorm A Abnorm A Anisocytosis Few A Few A ESR Carbon Dioxide BUN Glucose 179 H Hemoglobin A1c Calcium 8.2 L Phosphorus 1.6 L Magnesium 1.5 L AST Lactate Dehydrogenase C-Reactive Protein Albumin Triglycerides 07/30/16 07/30/16 07/30/16 23:10 21:24 21:24 WBC Hgb Hct RDW Seg Neutrophils % Band Neutrophils % RBC Morphology Anisocytosis ESR 60 H Carbon Dioxide BUN Glucose Hemoglobin A1c 7.8 H Calcium Phosphorus Magnesium AST Lactate Dehydrogenase C-Reactive Protein 5.8 H Albumin Triglycerides Meds: Medications Acetaminophen (Tylenol) 650 mg PO Q4-6HP PRN PRN Reason: PAIN/FEVER > 101 Last Admin: 08/01/16 20:14 Dose: 650 mg Diagnostic Test (Pha) (Accu-Chek) 1 each FS ACHS [facility] Last Admin: 08/02/16 07:24 Dose: 1 each Docusate Sodium (Colace) 100 mg PO BID [facility] Last Admin: 08/02/16 09:35 Dose: Not Given Heparin Sodium (Porcine) (Heparin) 5,000 unit SQ Q12 [facility] Last Admin: 08/02/16 09:27 Dose: 5,000 unit Magnesium Sulfate (Magnesium Sulfate) 2 gm in 50 mls @ 50 mls/hr IV UD PRN PRN Reason: MG = or < 1.7 Last Infusion: 07/31/16 18:04 Dose: Infused Sodium Chloride (Sodium Chloride 0.9%) 1,000 mls @ 100 mls/hr IV .Q10H [facility] Last Admin: 08/02/16 09:35 Dose: Not Given Sodium Chloride (Sodium Chloride 0.9%) 1,000 mls @ 0 mls/hr IV BOLUS [facility] PRN Reason: Wide Open Last Admin: 08/01/16 20:19 Dose: Not Given Acetaminophen (Ofirmev) 1,000 mg in 100 mls @ 200 mls/hr IV Q6HP PRN PRN Reason: PAIN/FEVER > 101 [facility] Last Admin: 08/02/16 07:50 Dose: 500 mg Ondansetron HCl (Zofran) 4 mg IV Q4-6HP PRN PRN Reason: Nausea And Vomiting Last Admin: 08/01/16 08:53 Dose: 4 mg Pantoprazole Sodium (Protonix) 40 mg PO QAMAC [facility] Last Admin: 08/02/16 07:27 Dose: 40 mg Potassium Chloride (Klor-Con) 40 meq PO DAILYP PRN PRN Reason: K+ < 3.5 Potassium/Phosphorus/Sodium (Neutra Phos) 2 packet PO BID [facility] Last Admin: 08/02/16 09:27 Dose: 2 packet Senna/Docusate Sodium (Senna Plus Tablet) 1 tab PO HS [facility] Last Admin: 08/01/16 20:18 Dose: Not Given Sitagliptin Phosphate (Januvia) 100 mg PO DAILY [facility] Last Admin: 08/02/16 09:28 Dose: 100 mg Sodium Chloride (Saline Flush) 10 ml IV Q8 [facility] Last Admin: 08/02/16 05:52 Dose: 10 ml Medical - PN: A/P - Time Spent With Patient Total time spent is greater than 50% in coordination of care (as documented) at patient's floor/unit and/or counseling patient: 25 - 35 minutes (1) Sepsis Status: Acute Assessment and plan: * Fever of unknown origin- Extensive workup to rule out viral/rheumatological/ blood dyscrasia pending. * Sepsis with bandemia- unknown primary.unlikely bacterial process due to negative procalcitonin. DC all antibiotics. Tachycardia resolved. Patient however feels a lot better. * Bilateral lower lobe pneumonia- off ABXe. negative pneumococci/Mycoplasma/ influenza. * New onset diabetes with hyperglycemia with A1c 7.8- continue metformin/ diabetic education * History of bipolar disorder-Seroquel on hold Plan * continue metformin/DM education * DC ABX * await extensive viral/connective tissue disorder panel * consider ID consult/tertiary Center transfer if workup nonyielding Current Visit: Yes Medical - PN: Qual - VTE Deep Vein Thrombosis/Pulmonary Embolism Present on Admission: Yes
[2016-08-02 11:22] LABS: Hepatitis A Antibody IgM NON REACTIVE (NEGATIVE); Hepatitis B Core IgM NON REACTIVE (NEGATIVE); Hepatitis B Surface Antigen NEGATIVE (NEGATIVE); Hepatitis C Virus Antibody NON REACTIVE (NEGATIVE)
[2016-08-02] MEDS: SENNOSIDES/DOCUSATE SODIUM 1 TAB TABLET PO SCH (20:33)
[2016-08-03] MEDS: 0.9 % SODIUM CHLORIDE 1,000 ML IV SCH (03:42)
[2016-08-03] MEDS: 0.9 % SODIUM CHLORIDE 10 ML SYRINGE IV SCH (05:31)
[2016-08-03 06:05] LABS: Mean Cell Volume 82.2 fL (80.0-100.0); Mean Corpuscular HGB Conc 33.4 g/dL (31.0-36.0); Mean Corpuscular Hemoglobin 27.4 pg (26.0-34.0); Platelet Count 201 K/mcL (140-440); RBC 4.17 M/mcL (4.00-5.20); Red Cell Distribution Width 14.7 % (11.5-14.5)
[2016-08-03 06:32] LABS: ALT/SGPT 46 U/l (0-40); Albumin 3.3 gm/dL (3.2-5.2); Albumin/Globulin Ratio 1.1 (1.0-2.3); Alkaline Phosphatase 101 U/L (39-117); Bilirubin,Direct < 0.2 mg/dL (0.0-0.3); Blood Urea Nitrogen 5 mg/dl (6-20); Gamma Glutamyl Transpeptidase 27 U/L (5-36); Magnesium 1.9 mg/dL (1.6-2.5); Uric Acid 4.3 mg/dL (2.5-8.0)
[2016-08-03 06:58] LABS: Band Neutrophils % 17 % (0-10); Lymphocytes % 25 % (15-49); Monocytes % (Manual) 4 % (1-12); Platelet Estimate NORMAL (NORMAL); RBC Morphology NORMAL (NORMAL); Segmented Neutrophils % 50 % (38-78)
[2016-08-03] MEDS: PANTOPRAZOLE 40 MG TABLET PO SCH (07:49)
[2016-08-03] MEDS: metFORMIN 500 MG TAB.XL.24H PO SCH (07:49)
[2016-08-03] MEDS: NEUTRA PHOS 1 PACKET PO SCH (09:31)
[2016-08-03] MEDS: sitaGLIPtin 100 MG TABLET PO SCH (09:31)
[2016-08-03] MEDS: HEPARIN 5,000 UNIT/ML VIAL SQ SCH (09:32)
[2016-08-03] MEDS: DOCUSATE SODIUM 100 MG CAPSULE PO SCH (09:32)
--- NOTE | 2016-08-03 12:26 | Discharge Summary ---
Medical - DS: Prov Patient information: Note initiated : 08/03/16 at 12:24 pm Service Date, if different from initiated Date: [] Patient: Amina Shelton 31 y/o F admitted on 07/30/16 for Chills, Joint Pain, Restless/Sepsis. Chief Complaint: [] Date of admission: 07/30/16 20:43 Discharge date: 08/03/16 Primary care physician: shayna Castillo DIMPLING MACHINE OPERATOR. Phone #[phone] Admitting clinician: Eduardo Staples Attending physician on discharge: [facility] - DS: Meds - Discharge Medications Active and Home Medications: Home Medications QUEtiapine [SEROquel] 0 mg PO BID 07/30/16 [History Confirmed 07/30/16 Last Taken Unknown] diphenhydrAMINE HCL [Benadryl] 50 mg PO HSP PRN 07/30/16 [History Confirmed Last Taken Unknown] Medical - DS: Hosp Hospital course: Mr. Shelton is a 31 year old female Patient: Amina Shelton 31 y/o F admitted on 07/30/16 for Chills, Joint Pain, Restless/Sepsis. Interval history: 07/30- 31-year-old with sepsis, fever and tachycardia and right sided pneumonia. admitted to telemetry on broad antibiotic coverage. Heart rate 140. Aggressive crystalloid/antibiotics. Blood cultures pending. 07/31- improving fever from 102.8-100.8. Tachycardia improved to 115. patient feels slightly better. Cough is productive sputum. No abdominal pain chest pain. No significant hypoxia. Improving hemodynamics. Continue broad antibiotic coverage for community acquired pathogens. 08/01- patient doing well. Overnight MAXIMUM TEMPERATURE 101..increasing bibasilar infiltrates on chest imaging. negative CSF cultures/blood cultures so far. On broad antibiotic coverage. 15% bands. CSF initial results showed 0 total cells, amended results shows 12 white cells with 85% lymphocytes. however normal protein and glucose. CSF HSV 1 and 2 DNA pending. pro-calcitonin 0.1 suggestive against an active bacterial process. DC antibiotics in 24 hours. 08/02- patient with FUO and daily evening rise of temperature as high as 103. Very confusing picture given Procan stone and 0.1, CSF cells 12 with lymphocyte predominance, peripheral blood extensive bandemia and neutrophilia,negative blood cultures, negative CT abdomen and chest. In regards to FUO further workup including hSV/EBV/CMV/HIV/hepatitis C/acute hepatitis panel ordered. Await ankle/RF/PUSHPA/ASO/peripheral smear. inflammatory markers moderate elevation ESR 60 CRP 5.6 . DC all antibiotics is unlikely a bacterial process. Patient denies history of travel/STDs/hiking or exposure to bat dropping. the patient continues to spike fever despite above workup she would need infectious disease specialist/tertiary Center transfer for further evaluation. august 03, 2016: this patient was admitted with the above noted history, with very high fever but normal total white blood cell count but significant bandemia and chest x-ray suggestive of right lower lobe pneumonia. There were concerns about missed sources, so spinal tap was also done with a few lymphocytes noted, but otherwise unremarkable CSF. Patient continued to spike very high fevers for the first couple of days and then these gradually came down. Pro-calcitonin level was normal, which voted againstsevere bacterial infection. Numerous other studieshave been ordered. Screens for hepatitis HIV, mycoplasma influenza, strep are all negative. she was initially treatedfor sepsis, with IV fluids and Levaquin, Zosyn vancomycin. These were discontinued. today, she reports she is feeling much better. She still has a cough productive of small amountsof yellowish phlegm. She no longer has fever. She denies shortness of breath. She does report that her dose of Seroquel was increased j ust prior to admission , for her bipolar disorder. -he seemed unawareof her new diagnosisof diabetes. She currently denies fever or chills headaches or dizziness, sore throat, chest pain or palpitations, significant shortness of breath or wheezing, abdominal pain, nausea or vomiting, diarrhea or constipation, or dysuria. She did have quite a bit of trouble getting to sleep last night, so her evening dose of Seroquel that had been held, was changed to 50 mg. And that seems to have helped. On exam, she is an overweight white female who is sitting up in a chair and is in no acute distress. Neck is supple. Cardiac exam shows regular rate and rhythm, with normal S1 and S2. Lungsare somewhat decreased at the bases, but are otherwise clear. Abdomen: Is protuberant, but soft and nontender. Extremities: Show no cyanosis, clubbing, edema. Neurologic exam: Is grossly nonfocal. assessment and plan: #1.Infectious disease. -his patient presented with very high fever, and septic presentation. She was treated aggressively with fluids and broad-spectrum antibiotics. No definite source was identified, although she appears to have a right base process. However, she never had significant leukocytosis, or elevated calcitonin level. she is now clinically much improved She has numerous studies pending, but so far all are negative. because of her ongoing cough, and chest x-ray findings, I will add oral Augmentin for the next 7 days. -she is advised to return to the emergency room if she again develops high fever , or otherwise clinically worsens. -Continue Mucinexto help loosen secretions. -if symptoms return, patient should be referred to infectious disease. #2. New-onsettype 2 diabetes. A1c 7.8%. -Metformin and Januvia were started. We discussed weight loss. We also discussed the possible roleof Seroquel and that she may want to review this medicationwith her doctors. -She will also needdiabetes education I will try to order glucometer and stripstoday as well. #3. bipolar disorder. -we will have her decrease her Seroquel to 100 mg every morning, and 50 mg daily at bedtime but I did encourage her to review her medications with her doctor, next week. #4. Nutrition. -On arrival, phosphorus and potassium levels were low. These have been replaced. #5. CODE STATUS: Full code. 36. Small left lung nodule was noted. This may require CT scan follow-up in 6- 12 months. Discharge diagnosis: sepsis. Right lower lobe pneumonia. New-onsetdiabetes 2 Reason for admission: sepsis, pneumonia, diabetes - Time Spent with Patient Total time spent providing and/or coordinating discharge services: Greater than 30 minutes Medical - DS: Exam - Constitutional Vitals: Vital Signs Temp Pulse Resp BP BP Pulse Ox 08/03/16 07:57 97.8 F 16 145/83 95 08/03/16 04:00 97.5 F 96 H 16 139/84 96 08/03/16 00:00 98.2 F 16 135/83 97 08/02/16 20:00 98.7 F 101 H 18 145/82 98 08/02/16 15:38 98.5 F 100 H 20 111/72 97 Intake and Output 08/02/16 08/03/16 08/03/16 21:59 05:59 13:59 Intake Total 1380 / 1380 1132 / 1132 1120 / 1120 Output Total 600 / 600 1575 / 1575 1400 / 1400 Balance 780 / 780 -443 / -443 -280 / -280 Intake: IV 932 / 932 700 / 700 Sodium Chloride 0.9% 1, 932 / 932 700 / 700 000 ml @ 100 mls/hr IV . Q10H JAYANT Rx#:[id number] Oral 1380 / 1380 200 / 200 420 / 420 Output: Void Amount 600 / 600 1575 / 1575 1400 / 1400 Other: Meal Dinner Breakfast Percent of Meal Consumed 100% 75% Weight 322 lb 8 oz Medical - DS: Data Labs on day of discharge: Labs from last 24 hours 08/03/16 08/03/16 04:40 04:40 WBC 4.7 RBC 4.17 Hgb 11.4 L Hct 34.3 L MCV 82.2 MCH 27.4 MCHC 33.4 RDW 14.7 H Plt Count 201 MPV 8.9 Total Counted 100 Seg Neutrophils % 50 Band Neutrophils % 17 H Lymphocytes % 25 Monocytes % (Manual) 4 Reactive Lymphocytes 4 H Platelet Estimate Normal RBC Morphology Normal Sodium 139 Potassium 4.0 Chloride 101 Carbon Dioxide 23 Anion Gap 15.0 BUN 5 L Creatinine 0.6 GFR Calculation 121 Glucose 159 H Uric Acid 4.3 Calcium 8.7 Phosphorus 3.0 Magnesium 1.9 Total Bilirubin 0.2 Direct Bilirubin < 0.2 GGT 27 AST 31 ALT 46 H Alkaline Phosphatase 101 Lactate Dehydrogenase 275 H Total Protein 6.2 Albumin 3.3 Globulin 2.9 Albumin/Globulin Ratio 1.1 Triglycerides 203 H CBC differential today, shows 17%bands, which is down from 29% yesterday. last Accu-Cheks show glucose of 127 and 163. LDHhas fallen from 309 down to 275. Triglycerides 203. rheumatoid factor less than 10. Anti-proteinase pending. anka screen was sent. Myeloperoxidase antibody is pending. CMV and antistreptolysin titers are pending. hepatitis A, B C screens are all negative. HIV screen is negative. Influenza A and B, mycoplasma, and strep pneumonia are all negative. Stool for C. difficile was negative. Nasal MRSA screen is negative. CSFGram stain shows rare white blood cells and no organisms. Culture is negative. Blood cultures are negative so far. Chest x-ray from August 01: As compared to chest x-ray from July 30 and cT scan from July 30: Increasing right basilar infiltrate consistent with pneumonia. Left lung is clear. EKGshowed sinus tachycardia at a rate of 144, on July 30. CT scan of the chest, abdomen, pelvis: Right lower lobe pneumonia. Small noncalcified left lower lobe nodule. Hepatic steatosis. in a low risk patient, 6-12 month follow-up is recommended. Medical - DS: A/P - Patient/Caregiver Discharge Instructions Activity: increase activity as tolerated Diet: Consistent Carbohydrate Additional Instructions: 31.please follow-up with your regular doctor to review new diagnosis of diabetes. #2. We will give you prescriptions for a glucometer and strips. Please check blood glucose before and after meals, and at bedtime, for the next few days, and take a list of these to your primary care physician. #3. For your right base pneumonia, take Augmentin, for the next 7 days, as prescribed. you may also take Yunc-nvi-assmlui Mucinex, 600 mg twice a day, to helpthin secretions. 34. Please call your doctor, or return to emergency room, if high fever or other abnormal symptoms return. #5.You may want to discuss other medications for bipolar disorder with your physician as Seroquelmay be contributing to weight gain and diabetes. Other Amb Orders: Diabetes Education Referral (outpatient) Time Frame: 1 Week, Location: Determined By Patient Dietitian Referral (outpatient) Location: Determined By Patient - Follow up Plan Follow up with: Shayna Castillo ARNP [Nurse Practitioner] - 08/08/16 9:30 am Disposition: Home, Self-Care Prognosis: Good Rehab Potential: Good I certify that the patient requires SNF services: No Medical - DS: Qual - VTE Deep Vein Thrombosis/Pulmonary Embolism Present on Admission: Yes
[2016-08-03] MEDS ORDERED: QUEtiapine 25 MG TABLET PO SCH (21:00)
[2016-08-05 11:35] LABS: HSV DNA NOT DETECTED
[2016-08-08 09:54] LABS: ANCA Screen NEGATIVE (NEGATIVE); Myeloperoxidase Antibody <1.0 AI (<1.0)
== END 2016-08-03 15:17 | disposition home or self-care (01) | DRG 871 ==
LOC: ED 16:00 → SUATTDRO 20:43 → ICU 20:43
PROVIDERS: ADMIT Internal Medicine; ATTEND Internal Medicine